=== PATIENT | male | born 1995 | race Caucasian/White ===

== ENCOUNTER 2017-04-09 00:39 | Emergency (ER) | payer OTHER ==
[~2017-04-09] VITALS: Ht 177.8 cm; Wt 104.5 kg
[~2017-04-09 00:39] MED LIST: ERYT1OIN6 RIGHT EYE
[2017-04-09 00:42] VITALS: Ht 177.8 cm; Wt 104.5 kg
--- NOTE | 2017-04-09 01:34 | ERD ---
ER Documentation Chief Complaint Date/Time DATE: 04/09/17 TIME: 01:29 Chief Complaint cough x 1 day & chest wall pain whenever he coughs strongly/ deep breathing HPI 21-year-old male presents to emergency department for complaints of cough that started today, patient is complaining of chest pain whenever coughing, has been having dry cough, does not cough up any phlegm or blood. Patient denies any palpitations or irregular heartbeat. Patient denies any dyspnea on exertion or dyspnea on lying down. Patient does not have any dizziness. ROS All systems reviewed and are negative except as per history of present illness. Medications Home Meds Active Scripts Erythromycin (Erythromycin Opth) 3.5 Gm Oint..gm., 1 APPLIC RIGHT EYE QID for 7 Days, EA Prov:FLORINDA DICKSON MD 08/09/15 Allergies Allergies: Coded Allergies: No Known Allergy (Unverified , 08/09/15) PMhx/Soc Medical and Surgical Hx: pt denies Surgical Hx History of Surgery: No Anesthesia Reaction: No Hx Neurological Disorder: No Hx Respiratory Disorders: No Hx Cardiac Disorders: Yes (DEXTROCARDIA) Hx Psychiatric Problems: No Hx Miscellaneous Medical Probl: No Hx Alcohol Use: No Hx Substance Use: No Hx Tobacco Use: No Smoking Status: Never smoker FmHx Family History: No coronary disease, No diabetes, No other Physical Exam Vitals Vital Signs Date Time Temp Pulse Resp B/P Pulse Ox O2 Delivery O2 Flow Rate FiO2 04/09/17 00:42 98.6 82 20 126/64 100 Physical Exam GENERAL: The patient is well developed and appropriate for usual state of health, in no apparent distress. CHEST: Clear to auscultation bilaterally. There are no rales, wheezes or rhonchi. HEART: Regular rate and rhythm. No murmurs, clicks, rubs or gallops. No S3 or S4. ABDOMEN: Soft, nontender and nondistended. Good bowel sounds. No rebound or guarding. No gross peritonitis. No gross organomegaly or masses. No Pacheco sign or McBurney point tenderness. BACK: No midline or flank tenderness. EXTREMITIES: Equal pulses bilaterally. There is no peripheral clubbing, cyanosis or edema. No focal swelling or erythema. Full range of motion. Grossly neurovascularly intact. NEURO: Alert and oriented. Cranial nerves 2-12 intact. Motor strength in all 4 extremities with 5/5 strength. Sensation grossly intact. Normal speech and gait. SKIN: There is no apparent rash or petechia. The skin is warm and dry. HEMATOLOGIC AND LYMPHATIC: There is no evidence of excessive bruising or lymphedema. No gross cervical, axillary, or inguinal lymphadenopathy.` Results 24 hrs EKG was done, read by me and is normal sinus rhythm at a rate of 59, normal axis , there is no ST changes or changes in the EKG that indicates any cardiac emergencies at this time. Patient's EKG was also reviewed by Dr. Edwards. Impression: no acute findings on EKG PROCEDURE: CHEST - 1 VIEW CLINICAL INDICATION: 21-year-old male with cough and chest pain. TECHNIQUE: A single frontal upright portable view of the chest was performed. The images were reviewed on a PACS workstation. COMPARISON: None. FINDINGS: Dextrocardia is present. Otherwise, the cardiomediastinal silhouette has a normal appearance. There is no evidence for an infiltrate. The pulmonary vascularity is within normal limits. There is no evidence for pneumothorax or pneumomediastinum. The osseous structures are intact. IMPRESSION: 1. Dextrocardia. 2. No evidence for active cardiopulmonary disease. .Shane Gibson MD, MD Date Time Electronically viewed and signed by .Shane Gibson MD, MD on 04/09/2017 02:39 .M/ CC: KAYLA LEWIS RESOURCE COORDINATOR Procedures/MDM Medical Decision Making: Patient symptoms are most likely consistent with acute bronchitis, which viral in origin. There is low suspicion for Pneumonia at this time since patients lungs sounds are clear, patient O2 saturation is normal and patient doesnt show any respiratory distress. Patients chest xray doesnt show infiltrates or any other cardiopulmonary emergencies at this time. There is low suspicion for other cardiopulmonary emergencies at this time such as CHF, Pulmonary Embolism, Pneumothorax, Aortic Aneurysm or any other cardiopulmonary emergencies at this time. There is low suspicion for sepsis. Patient appears well and is hemodynamically stable. Patient does not have any fever. Disposition: Home. Condition: Stable Prescriptions: Proair, guaifenesin DM Zyrtec ibuprofen Instructions: Patient is advised to take medications as prescribed. Patient is advised to rest. Patient advised to increase fluid intake, do humidifier at home and if possible, do salt water gargles. Patient is advised that if symptoms are worse, shortness of breath, uncontrolled fever, stridor, vomiting, worst signs and symptoms to return to emergency department immediately. Otherwise, patient is advised to follow up with primary doctor in 5-7 days. Departure Diagnosis: Primary Impression: Acute bronchitis Bronchitis organism: unspecified organism Qualified Code: J20.9 - Acute bronchitis, unspecified organism Condition: Stable Patient Instructions: Bronchitis, No Antibiotic (Adult) Additional Instructions: Patient is advised to take medications as prescribed. Patient is advised to rest. Patient advised to increase fluid intake, do humidifier at home and if possible, do salt water gargles. Patient is advised that if symptoms are worse, shortness of breath, uncontrolled fever, stridor, vomiting, worst signs and symptoms to return to emergency department immediately. Otherwise, patient is advised to follow up with primary doctor in 5-7 days. KAYLA LEWIS NP Apr 09, 2017 01:34
--- NOTE | 2017-04-09 02:39 | RADRPT ---
PROCEDURE: CHEST - 1 VIEW CLINICAL INDICATION: 21-year-old male with cough and chest pain. TECHNIQUE: A single frontal upright portable view of the chest was performed. The images were rev iewed on a PACS workstation. COMPARISON: None. FINDINGS: Dextrocardia is present. Otherwise, the cardiomediastinal silhouette has a normal appearance. There is no evidence for an infiltrate. The pulmonary vascularity is within normal limits. There is no e vidence for pneumothorax or pneumomediastinum. The osseous structures are intact. IMPRESSION: 1. Dextrocardia. 2. No evidence for active cardiopulmonary disease. .Shane Gibson MD, MD Date Time Electronically viewed and signed by .Shane Gibson MD, MD on 04/09/2017 02:39 .Nadja/
[2017-04-09] MEDS ORDERED: CETI10CA PO (02:55)
[2017-04-09] MEDS ORDERED: ALBU8.5H3 INH (02:55)
[2017-04-09] MEDS ORDERED: IBUP-1542 PO (02:55)
[2017-04-09] MEDS ORDERED: GUAI120S26 PO (02:55)
== END 2017-04-09 03:08 | disposition home or self-care (01) ==
LOC: FTE 00:39
DX: J20.9 Acute bronchitis, unspecified (principal); R07.89 Other chest pain
CPT/HCPCS: 71010; 93005; Z7502